=== PATIENT | female | born 1965 | race Two or more races ===

== ENCOUNTER 2017-11-28 06:30 | Inpatient (IN) | payer OTHER ==
[~2017-11-28 06:30] MED LIST: ZYRTE PO
[2017-11-28] MEDS ORDERED: PERCOCET 5-3251 EACH PO (15:49)
[2017-11-28] MEDS ORDERED: DUI500 PO (15:49)
[2017-11-28] MEDS ORDERED: ALEVE220 MG PO (15:49)
[2017-11-29] MEDS ORDERED: WHEELCHAIR (07:47)
[2017-11-29] MEDS ORDERED: ULTRA-LIGHT RO1 EACH MD (07:47)
== END 2017-11-29 12:00 | disposition home or self-care (01) | DRG 494 ==
LOC: CIR.AMB 06:30 → O/R 17:58
PROVIDERS: Orthopaedic Surgery
PROC: 0QHH36Z Insertion of Intramedullary Internal Fixation Device into Left Tibia, Percutaneous Approach (ICD-10-PCS; 2017-11-28)
PROC: 0QU Lower Bones, Supplement (ICD-10-PCS; 2017-11-28)
PROC: 0QU Lower Bones, Supplement (ICD-10-PCS; 2017-11-28)
PROC: 0QH Lower Bones, Insertion (ICD-10-PCS; principal; 2017-11-28 12:15)
DX: S52.242A Displaced spiral fracture of shaft of ulna, left arm, initial encounter for closed fracture (principal); S82.422A Displaced transverse fracture of shaft of left fibula, initial encounter for closed fracture

== ENCOUNTER 2024-05-28 14:46 | Inpatient (IN) | payer OTHER ==
[~2024-05-28] VITALS: Ht 175.3 cm; Wt 62.1 kg
[~2024-05-28 14:46] MED LIST changes: +ALEVE220 MG PO; +DUI500 PO; +PERCOCET 5-3251 EACH PO; +ULTRA-LIGHT RO1 EACH MD; +WHEELCHAIR
[2024-05-28] MEDS ORDERED: 0.9 % SODIUM CHLORIDE 1,000 ML IV ONE (19:45)
[2024-05-28 20:30] LABS: HEMATOCRIT 42.6 % (36.0-45.00); HEMOGLOBIN 14.2 g/dL (12.0-15.00); MEAN CELL VOLUME 94.2 fL (80.00-100.00); MEAN CORPUSCULAR HEMOGLOBIN 31.4 pg (27.00-32.0); MEAN CORPUSCULAR HGB CONC 33.4 g/dl (32.0-36.0); PLATELET COUNT 300 K/uL (150-450); RED BLOOD COUNT 4.52 M/uL (4.00-6.00)
[2024-05-28 20:54] LABS: ALBUMIN 3.4 gm/dL (3.4-5.0); BILIRUBIN TOTAL 1.91 mg/dL (0.3-1.2); CALCIUM 9.2 mg/dL (8.5-10.1); CREATININE SERUM 0.72 mg/dL (0.55-1.02); GFR 82.62; GLOBULINA 4.7 G/DL (2.4-3.5); POTASSIUM 3.41 mEq/L (3.5-5.1); TOTAL PROTEIN 8.1 gm/dL (6.4-8.2)
[2024-05-28 23:21] LABS: BILIRUBIN TOTAL 1.94 mg/dL (0.3-1.2)
[2024-05-28 23:32] LABS: BILIRUBIN,CONJUGATED 0.93 mg/dL (0.0-0.2); BILIRUBIN,UNCONJUGATED 1.01 mg/dL (0.0-0.6)
[2024-05-28] MEDS ORDERED: CEFTRIAXONE SODIUM 2,000 MG in 0.9 % SODIUM CHLORIDE 100 ML IV ONE (23:45)
[2024-05-28] MEDS ORDERED: 0.9 % SODIUM CHLORIDE 1,000 ML IV SCH (23:45)
[2024-05-28] MEDS ORDERED: MORPHINE SULFATE 2 MG/ML CARTRIDGE IV SCH (23:45)
[2024-05-28] MEDS ORDERED: KETOROLAC TROMETHAMINE 15 MG VIAL IV ONE (23:45)
[2024-05-28] MEDS ORDERED: METRONIDAZOLE/SODIUM CHLORIDE 100 ML IV ONE (23:45)
[2024-05-28] MEDS ORDERED: HYOSCYAMINE SULFATE 0.125 MG TAB.SUBL PO ONE (23:45)
[2024-05-28] MEDS ORDERED: FAMOTIDINE/PF 20 MG in 0.9 % SODIUM CHLORIDE 8 ML IV PUSH SCH (23:51)
[2024-05-29 01:27] LABS: INR 1.03; PARTIAL THROMBOPLASTIN TIME 26.5 SECONDS (22.0-34.0); PROTHROMBIN TIME 11.2 SECONDS (9.0-11.5)
[2024-05-29 04:10] VITALS: BP 151/87; O2SAT 95
[2024-05-29 05:48] LABS: ALBUMIN 2.8 gm/dL (3.4-5.0); BILIRUBIN TOTAL 1.59 mg/dL (0.3-1.2); BILIRUBIN,CONJUGATED 1.13 mg/dL (0.0-0.2); BILIRUBIN,UNCONJUGATED 0.46 mg/dL (0.0-0.6); MAGNESIUM 1.6 mg/dL (1.8-2.4); TOTAL PROTEIN 6.3 gm/dL (6.4-8.2)
[2024-05-29 06:34] LABS: URINE APPEARANCE Clear; URINE BILIRRUBIN Negative (NEGATIVE); URINE BLOOD Negative; URINE COLOR Yellow; URINE GLUCOSE Negative (NEGATIVE); URINE KETONE 15 (NEGATIVE); URINE LEUKOCYTE Moderate; URINE NITRATE Negative; URINE PROTEIN Negative (NEGATIVE)
[2024-05-29 06:37] LABS: URINE BACTERIA 184.7 uL (0.0-1933); URINE EPITHELIAL CELLS 5.6 uL (0.0-38.8); URINE RBC 3.5 uL (0.0-20.8); URINE WBC 26.8 uL (0.0-23.2)
[2024-05-29 09:44] VITALS: BP 111/66; O2SAT 97
[2024-05-29] MEDS ORDERED: CIPROFLOXACIN IN 5 % DEXTROSE 200 ML IV SCH (11:32)
[2024-05-29] MEDS ORDERED: POTASSIUM CHLORIDE 20MEQ/100ML H2O PB IV NR (12:00)
[2024-05-29] MEDS ORDERED: MAGNESIUM SULFATE IN WATER 50 ML IV NR (12:00)
[2024-05-29] MEDS ORDERED: METRONIDAZOLE/SODIUM CHLORIDE 100 ML IV SCH (13:00)
[2024-05-29] MEDS ORDERED: MORPHINE SULFATE 2 MG/ML CARTRIDGE IV SCH (14:00)
[2024-05-29] MEDS ORDERED: MORPHINE SULFATE 2 MG/ML CARTRIDGE IV PRN (18:29)
[2024-05-29 19:24] VITALS: BP 120/75
[2024-05-29] MEDS ORDERED: HYOSCYAMINE SULFATE 0.125 MG TAB.SUBL SL PRN (22:00)
[2024-05-30 01:25] VITALS: BP 128/83; O2SAT 97
[2024-05-30 06:37] LABS: HEMATOCRIT 38.5 % (36.0-45.00); HEMOGLOBIN 13.3 g/dL (12.0-15.00); MEAN CORPUSCULAR HEMOGLOBIN 31.9 pg (27.00-32.0); MEAN CORPUSCULAR HGB CONC 34.6 g/dl (32.0-36.0); PLATELET COUNT 256 K/uL (150-450); RED BLOOD COUNT 4.19 M/uL (4.00-6.00); RED CELL DISTRIBUTION WIDTH 14.3 % (11.5-14.5)
[2024-05-30 07:11] LABS: ALBUMIN 2.8 gm/dL (3.4-5.0); BILIRUBIN TOTAL 1.37 mg/dL (0.3-1.2); CALCIUM 8.2 mg/dL (8.5-10.1); CREATININE SERUM 0.64 mg/dL (0.55-1.02); GFR 94.65; GLOBULINA 3.3 G/DL (2.4-3.5); MAGNESIUM 2.5 mg/dL (1.8-2.4); PHOSPHOROUS 3.3 mg/dL (2.5-4.9); TOTAL PROTEIN 6.1 gm/dL (6.4-8.2)
[2024-05-30] MEDS ORDERED: ENOXAPARIN SODIUM 40 MG/0.4 ML SYRINGE SUBCUTANEO SCH (09:00)
[2024-05-30 09:01] VITALS: BP 126/79; O2SAT 96
[2024-05-30] MEDS ORDERED: KETOROLAC TROMETHAMINE 30 MG VIAL IV SCH (13:00)
[2024-05-30 16:47] VITALS: BP 153/87; O2SAT 98
[2024-05-30] MEDS ORDERED: RINGERS SOLUTION,LACTATED 1,000 ML IV SCH (19:15)
[2024-05-31 01:01] VITALS: BP 129/85; O2SAT 99
[2024-05-31 07:09] LABS: ALBUMIN 2.9 gm/dL (3.4-5.0); BILIRUBIN TOTAL 1.38 mg/dL (0.3-1.2); CALCIUM 8.7 mg/dL (8.5-10.1); CREATININE SERUM 0.75 mg/dL (0.55-1.02); GFR 78.82; GLOBULINA 3.4 G/DL (2.4-3.5); POTASSIUM 3.81 mEq/L (3.5-5.1); TOTAL PROTEIN 6.3 gm/dL (6.4-8.2)
[2024-05-31 09:25] VITALS: BP 118/77; O2SAT 98
[2024-05-31 16:11] VITALS: BP 138/86; O2SAT 97
[2024-05-31] MEDS ORDERED: BUPIVACAINE HCL 30 ML VIAL IJ ONE (20:00)
[2024-05-31] MEDS ORDERED: MORPHINE SULFATE 4 MG/ML VIAL IV ONE ×2 (20:50→21:50)
[2024-06-01 01:01] VITALS: BP 162/67; O2SAT 100
[2024-06-01] MEDS ORDERED: SUCRALFATE 1 G TABLET PO SCH (09:00)
[2024-06-01 09:05] VITALS: BP 140/85; O2SAT 99
[2024-06-01 17:07] VITALS: BP 142/77
[2024-06-02 01:19] VITALS: BP 153/85; O2SAT 100
[2024-06-02 07:33] LABS: HEMATOCRIT 37.7 % (36.0-45.00); HEMOGLOBIN 13.1 g/dL (12.0-15.00); MEAN CORPUSCULAR HEMOGLOBIN 31.8 pg (27.00-32.0); MEAN CORPUSCULAR HGB CONC 34.6 g/dl (32.0-36.0); PLATELET COUNT 305 K/uL (150-450); RED BLOOD COUNT 4.11 M/uL (4.00-6.00); RED CELL DISTRIBUTION WIDTH 13.9 % (11.5-14.5)
[2024-06-02 07:44] LABS: ALBUMIN 2.7 gm/dL (3.4-5.0); BILIRUBIN TOTAL 1.13 mg/dL (0.3-1.2); CALCIUM 8.6 mg/dL (8.5-10.1); CREATININE SERUM 0.66 mg/dL (0.55-1.02); GFR 91.35; GLOBULINA 3.3 G/DL (2.4-3.5); POTASSIUM 4.13 mEq/L (3.5-5.1)
[2024-06-02 09:00] VITALS: BP 140/80; O2SAT 98
[2024-06-02] MEDS ORDERED: ZOFRAN8 MG PO (13:35)
[2024-06-02] MEDS ORDERED: INTESTINEX680 M1 PO (13:36)
[2024-06-02] MEDS ORDERED: LEVSIN/SL0.125 MG SL (13:36)
[2024-06-02] MEDS ORDERED: TRAM1TAB98 PO (13:36)
[2024-06-02] MEDS ORDERED: CARAFATE1 GM PO (13:37)
== END 2024-06-02 14:14 | disposition home or self-care (01) | DRG 418 ==
LOC: ER 14:48 → MEDI 23:53
PROVIDERS: General Practice; Preventive Medicine Public Health & General Preventive Medicine; Surgery; ADMIT Internal Medicine; ATTEND Internal Medicine
PROC: BW40ZZZ Ultrasonography of Abdomen (ICD-10-PCS; 2024-05-28)
PROC: BF37ZZZ Magnetic Resonance Imaging (MRI) of Pancreas (ICD-10-PCS; 2024-05-28)
PROC: BW21ZZZ Computerized Tomography (CT Scan) of Abdomen and Pelvis (ICD-10-PCS; 2024-05-29)
PROC: 0FT44ZZ Resection of Gallbladder, Percutaneous Endoscopic Approach (ICD-10-PCS; principal; 2024-05-31 18:00)
DX: K80.10 Calculus of gallbladder with chronic cholecystitis without obstruction (principal); K90.49 Malabsorption due to intolerance, not elsewhere classified; K66.0 Peritoneal adhesions (postprocedural) (postinfection); K82.8 Other specified diseases of gallbladder; E86.0 Dehydration; K76.0 Fatty (change of) liver, not elsewhere classified; I10 Essential (primary) hypertension